=== PATIENT | male | born 1945 | race Caucasian/White ===

== ENCOUNTER 2021-11-18 10:43 | Inpatient (IN) | payer OTHER, MEDICARE, MEDICAID ==
[~2021-11-18 10:43] MED LIST: Iopamidol 370 76% 100 ML VIAL ONE
[2021-11-18 11:06] LABS: #Basophils 0.1 thou/uL (0.0-0.2); #Eosinphils 0.1 thou/uL (0.0-0.7); #Lymphocytes 3.1 thou/uL (1.20-3.40); #Monocytes 0.7 thou/uL (0.11-0.59); %Basophils 0.6 % (0.0-1.0); %Eosinophils 0.7 % (0.0-10.0); %Lymphocytes 22.3 % (21.0-51.0); %Neutrophils 71.3 % (42.0-75.0); Hemoglobin 16.4 g/dL (14.0-18.0); Mean Corpuscular HGB CONC 32.8 g/dL (32.0-36.0); Mean Corpuscular Volume 94.7 fL (78.0-98.0); Mean Platelet Volume 7.5 fL (7.4-10.4); Platelet Count 232 thou/uL (130-400); RBC Distribution Width 11.6 % (11.5-14.5); Red Blood Cell (RBC) Count 5.28 mill/uL (4.70-6.10); White Blood Cell (WBC) Count 14.1 thou/uL (4.8-10.8)
[2021-11-18 11:27] LABS: ALT (SGPT) 25 U/L (8-55); AST (SGOT) 23 U/L (5-34); Albumin 3.9 g/dL (3.4-4.8); Alkaline Phosphatase 86 U/L (40-110); Anion Gap 20 mmol/L (10-20); BUN (Urea Nitrogen) 26 mg/dL (8.4-25.7); Bilirubin, Total 0.8 mg/dL (0.2-1.2); CK (CPK) 137 U/L (30-200); Calc. Creatinine Clearance 0 mL/min (70-130); Calcium 8.5 mg/dL (7.8-10.44); Carbon Dioxide 19 mmol/L (23-31); Chloride 103 mmol/L (98-107); Estimated GFR 73; Glucose 173 mg/dL (83-110); INR-International Normal Ratio 1.1; Lipase 153 U/L (8-78); Potassium 3.5 mmol/L (3.5-5.1); Protein, Total 6.9 g/dL (5.8-8.1); Prothrombin Time 14.5 sec (12.0-14.7); Sodium 138 mmol/L (136-145)
[2021-11-18] MEDS ORDERED: Morphine 4 MG/ML VIAL ONE (11:35)
[2021-11-18] MEDS ORDERED: Midazolam HCl 2 mg/2 ml Vial ONE (11:35)
[2021-11-18 11:37] LABS: PTT 171.8 sec (22.9-36.1)
[2021-11-18] MEDS ORDERED: Acetaminophen/Codeine 30-300mg Tablet PO PRN (12:08)
[2021-11-18] MEDS ORDERED: traMADol HCl 50 MG TAB PO PRN (12:08)
[2021-11-18] MEDS ORDERED: Milk Of Magnesia 30 ML UDCUP PO PRN (12:08)
[2021-11-18] MEDS ORDERED: Clopidogrel Bisulfate 300 MG TAB ONE (12:09)
[2021-11-18] MEDS ORDERED: Sodium Chloride 0.9% 1,000 ML IV SCH (12:15)
[2021-11-18 12:20] LABS: SARS-CoV-2 NAA Rapid Test Not Detected (NotDetected)
[2021-11-18] MEDS ORDERED: Rocuronium Bromide 10 MG/ML (10ML VIAL) ONE (12:30)
[2021-11-18] MEDS ORDERED: Magnesium 5 GM/10 ML Abboject SYRINGE ONE (12:30)
[2021-11-18] MEDS ORDERED: Amiodarone 150 MG/3 ML VIAL ONE (12:30)
[2021-11-18] MEDS ORDERED: EPINEPHrine 1 MG/10 ML Abboject SYRINGE ONE ×2 (12:30→13:02)
[2021-11-18 12:57] LABS: Actual Bicarbonate (HCO3a) 14.9 mEq/L (22-28); Analyzer IN Cardio ER; Base Excess (BEa) -14.2 mEq/L (-2.0 to +3.0); CO2 Tension 46.1 mmHg (35.0-45.0); Calcium, Ionized (arterial) 1.15 mmol/L (1.12-1.30); Carboxyhemoglobin (COHb) 0.3 gm% (0.0-3.0); Potassium - ABG Lab 3.35 mmol/L (3.70-5.30)
[2021-11-18] MEDS ORDERED: Lidocaine 1% (PF) 30 ML VIAL ONE (12:59)
[2021-11-18 13:00] LABS: ALV-art Gradient 561.375 mmHg (0-20); Puncture Site RRA; pH, Arterial 7.13 (7.35-7.45)
[2021-11-18] MEDS ORDERED: Norepinephrine 4 MG/4 ML VIAL ONE ×2 (13:12→13:48)
[2021-11-18] MEDS ORDERED: Heparin 10,000 UNITS/ 10 ML VIAL ONE (13:17)
[2021-11-18] MEDS ORDERED: Aggrastat 12.5 MG/250 ML 250 ML ONE (13:23)
[2021-11-18] MEDS ORDERED: Phenylephrine 10 MG/ML VIAL ONE ×2 (13:31→13:46)
[2021-11-18] MEDS ORDERED: Adenosine 6 MG/2 ML VIAL ONE (13:33)
[2021-11-18] MEDS ORDERED: Sodium Bicarb 50 MEQ/50 ML VIAL ONE (15:20)
[2021-11-18] MEDS ORDERED: Sodium Bicarb 50 MEQ/50 ML VIAL IVP SCH (15:20)
[2021-11-18] MEDS: Sodium Bicarbonate 150 MEQ in Dextrose 5% in Water 1,000 ML IV SCH (16:19)
[2021-11-18] MEDS ORDERED: Morphine 4 MG/ML VIAL SLOW IVP PRN (17:00)
[2021-11-18] MEDS ORDERED: Propofol 1,000 MG/100 ML VIAL IV PRN (17:00)
[2021-11-18] MEDS ORDERED: Fentanyl CADD 100 ML IV SCH (17:00)
[2021-11-18] MEDS ORDERED: Lorazepam 2 MG/ML VIAL SLOW IVP PRN (17:00)
[2021-11-18] MEDS ORDERED: Fentanyl BOLUS 250 ML IVPB PRN (17:00)
[2021-11-18] MEDS ORDERED: Propofol BOLUS 1,000 MG/100 ML VIAL IV PRN (17:00)
[2021-11-18] MEDS ORDERED: DISCONTINUE PREVIOUS NARCOTIC PAIN MEDICATIONS AND BENZODIAZEPINES FS SCH (17:00)
[2021-11-18] MEDS: Vasopressin 20 UNIT, Admixture Fee 1 EACH in Sodium Chloride 0.9% 50 ML IV SCH ×2 (17:07→22:38)
[2021-11-18] MEDS: Phenylephrine 40 MG/NS 250 ML 40 MG in Premix Bag 1 BAG IVPB SCH ×2 (18:18→23:47)
[2021-11-18] MEDS: Norepinephrine 8 MG/0.9% NS 250 ML IVPB SCH ×2 (18:19→22:38)
[2021-11-18] MEDS ORDERED: Aggrastat 12.5 MG/250 ML 250 ML IVPB SCH (18:45)
[2021-11-18] MEDS ORDERED: Atorvastatin Calcium 40 MG TAB PO SCH (21:00)
[2021-11-18] MEDS ORDERED: Fentanyl CADD 100 ML ONE (22:58)
[2021-11-19] MEDS: Norepinephrine 8 MG/0.9% NS 250 ML IVPB SCH ×5 (02:18→16:26)
[2021-11-19] MEDS: Phenylephrine 40 MG/NS 250 ML 40 MG in Premix Bag 1 BAG IVPB SCH ×6 (02:18→19:22)
[2021-11-19] MEDS: Vasopressin 20 UNIT, Admixture Fee 1 EACH in Sodium Chloride 0.9% 50 ML IV SCH ×4 (03:17→19:23)
[2021-11-19] MEDS: Sodium Bicarbonate 150 MEQ in Dextrose 5% in Water 1,000 ML IV SCH ×2 (03:17→14:34)
[2021-11-19] MEDS ORDERED: Aspirin Chewable 81 MG TAB PO SCH (09:00)
[2021-11-19] MEDS ORDERED: Clopidogrel Bisulfate 75 MG TAB PO SCH (09:00)
[2021-11-19 09:45] LABS: #Lymphocytes 3.4 thou/uL (1.20-3.40); #Monocytes 1.3 thou/uL (0.11-0.59); #Neutrophils 12.5 thou/uL (1.40-6.50); %Basophils 0.1 % (0.0-1.0); %Eosinophils 0.3 % (0.0-10.0); %Lymphocytes 19.6 % (21.0-51.0); %Monocytes 7.7 % (0.0-10.0); %Neutrophils 72.4 % (42.0-75.0); Hemoglobin 9.7 g/dL (14.0-18.0); Mean Corpuscular HGB CONC 31.6 g/dL (32.0-36.0); Mean Corpuscular Volume 98.3 fL (78.0-98.0); Platelet Count 195 thou/uL (130-400); Red Blood Cell (RBC) Count 3.11 mill/uL (4.70-6.10); White Blood Cell (WBC) Count 17.3 thou/uL (4.8-10.8)
[2021-11-19 10:14] LABS: ALT (SGPT) 2164 U/L (8-55); AST (SGOT) 2476 U/L (5-34); Albumin 2.2 g/dL (3.4-4.8); Alkaline Phosphatase 60 U/L (40-110); Anion Gap 29 mmol/L (10-20); BUN (Urea Nitrogen) 27 mg/dL (8.4-25.7); Bilirubin, Total 0.6 mg/dL (0.2-1.2); Calc. Creatinine Clearance 25 mL/min (70-130); Calcium 6.5 mg/dL (7.8-10.44); Carbon Dioxide 15 mmol/L (23-31); Chloride 101 mmol/L (98-107); Estimated GFR 28; Globulin 1.7 g/dL (2.4-3.5); Glucose 194 mg/dL (83-110); Potassium 3.8 mmol/L (3.5-5.1); Protein, Total 3.9 g/dL (5.8-8.1); Sodium 141 mmol/L (136-145)
[2021-11-19 11:33] VITALS: BP 91/50
[2021-11-19 12:27] VITALS: BMI 28.8
[2021-11-19 17:04] VITALS: TEMP 98.1
[2021-11-19 18:32] LABS: Troponin I 255.606 ng/mL (< 0.028)
[2021-11-19] MEDS ORDERED: EPINEPHrine 1 MG/10 ML Abboject SYRINGE ONE (18:35)
[2021-11-19 19:22] LABS: Hemoglobin 8.2 g/dL (14.0-18.0); Mean Corpuscular HGB CONC 33.6 g/dL (32.0-36.0); Mean Corpuscular Hemoglobin 33.6 pg (27.0-31.0); Mean Corpuscular Volume 99.9 fL (78.0-98.0); Mean Platelet Volume 7.9 fL (7.4-10.4); Platelet Count 126 thou/uL (130-400); RBC Distribution Width 11.9 % (11.5-14.5); Red Blood Cell (RBC) Count 2.45 mill/uL (4.70-6.10)
[2021-11-19] MEDS ORDERED: Atropine Sulfate 1 mg/10 ml Syringe ONE (19:25)
[2021-11-19 19:35] LABS: Band 16 % (5-11); Lymphocytes 27 % (21-51); MDiff Complete? YES; Macrocytosis SLIGHT = 6-15 cells (100X) (0-5/hpf); Monocytes 1 % (0-10); Neutrophil 46 % (42-75); Platelet Morphology Comment Appears Decreased; Polychromasia SLIGHT = 2-3 cells (100X) (0-2/hpf); Reactive Lymphocytes 10 % (0-10)
[2021-11-19 19:42] LABS: Albumin 1.7 g/dL (3.4-4.8); Alkaline Phosphatase 96 U/L (40-110); BUN (Urea Nitrogen) 27 mg/dL (8.4-25.7); Bilirubin, Total 0.9 mg/dL (0.2-1.2); Calc. Creatinine Clearance 19 mL/min (70-130); Chloride 99 mmol/L (98-107); Estimated GFR 21; Globulin 1.4 g/dL (2.4-3.5); Glucose 134 mg/dL (83-110); Protein, Total 3.1 g/dL (5.8-8.1); Sodium 141 mmol/L (136-145)
[2021-11-19 19:47] LABS: AST (SGOT) Greater than 3500 U/L (5-34); Calcium 5.7 mg/dL (7.8-10.44); Carbon Dioxide Less than 8 mmol/L (23-31)
[2021-11-19 19:57] LABS: ALT (SGPT) 4139 U/L (8-55)
[2021-11-19] MEDS ORDERED: EPINEPHrine 4 MG in Dextrose 5% in Water 250 ML IV SCH (20:00)
== END 2021-11-19 20:20 | disposition expired | DRG 270 ==
LOC: ERS 10:43 → CCU 11:00
PROVIDERS: ADMIT Internal Medicine Cardiovascular Disease; ATTEND Internal Medicine Cardiovascular Disease
PROC: 027034Z Dilation of Coronary Artery, One Artery with Drug-eluting Intraluminal Device, Percutaneous Approach (ICD-10-PCS; principal; 2021-11-18)
PROC: 5A02210 Assistance with Cardiac Output using Balloon Pump, Continuous (ICD-10-PCS; 2021-11-18)
PROC: 027034Z Dilation of Coronary Artery, One Artery with Drug-eluting Intraluminal Device, Percutaneous Approach (ICD-10-PCS; 2021-11-18)
PROC: 5A1945Z Respiratory Ventilation, 24-96 Consecutive Hours (ICD-10-PCS; 2021-11-18)
PROC: 3E043XZ Introduction of Vasopressor into Central Vein, Percutaneous Approach (ICD-10-PCS; 2021-11-18)
PROC: 4A023N7 Measurement of Cardiac Sampling and Pressure, Left Heart, Percutaneous Approach (ICD-10-PCS; 2021-11-18)
PROC: B2111ZZ Fluoroscopy of Multiple Coronary Arteries using Low Osmolar Contrast (ICD-10-PCS; 2021-11-18)
PROC: B2151ZZ Fluoroscopy of Left Heart using Low Osmolar Contrast (ICD-10-PCS; 2021-11-18)
PROC: B240ZZ3 Ultrasonography of Single Coronary Artery, Intravascular (ICD-10-PCS; 2021-11-18)
PROC: 3E033PZ Introduction of Platelet Inhibitor into Peripheral Vein, Percutaneous Approach (ICD-10-PCS; 2021-11-18)
PROC: 5A12012 Performance of Cardiac Output, Single, Manual (ICD-10-PCS; 2021-11-18)
PROC: 5A2204Z Restoration of Cardiac Rhythm, Single (ICD-10-PCS; 2021-11-18)
PROC: B240ZZ3 Ultrasonography of Single Coronary Artery, Intravascular (ICD-10-PCS; 2021-11-18)
PROC: B2111ZZ Fluoroscopy of Multiple Coronary Arteries using Low Osmolar Contrast (ICD-10-PCS; 2021-11-18)
PROC: 0BH18EZ Insertion of Endotracheal Airway into Trachea, Via Natural or Artificial Opening Endoscopic (ICD-10-PCS; 2021-11-18)
PROC: 06HY33Z Insertion of Infusion Device into Lower Vein, Percutaneous Approach (ICD-10-PCS; 2021-11-18)
PROC: 0D9670Z Drainage of Stomach with Drainage Device, Via Natural or Artificial Opening (ICD-10-PCS; 2021-11-18)
DX: I21.19 ST elevation (STEMI) myocardial infarction involving other coronary artery of inferior wall (principal); J96.90 Respiratory failure, unspecified, unspecified whether with hypoxia or hypercapnia; I47.2 Ventricular tachycardia; T82.867A Thrombosis due to cardiac prosthetic devices, implants and grafts, initial encounter; M96.89 Other intraoperative and postprocedural complications and disorders of the musculoskeletal system; Z20.822 Contact with and (suspected) exposure to COVID-19; I46.2 Cardiac arrest due to underlying cardiac condition; I49.01 Ventricular fibrillation; Y83.1 Surgical operation with implant of artificial internal device as the cause of abnormal reaction of the patient, or of later complication, without mention of misadventure at the time of the procedure; R57.0 Cardiogenic shock; Y84.8 Other medical procedures as the cause of abnormal reaction of the patient, or of later complication, without mention of misadventure at the time of the procedure; Y92.234 Operating room of hospital as the place of occurrence of the external cause; E78.5 Hyperlipidemia, unspecified; I25.10 Atherosclerotic heart disease of native coronary artery without angina pectoris; I25.5 Ischemic cardiomyopathy; Z78.1 Physical restraint status; Z79.899 Other long term (current) drug therapy
CPT/HCPCS: 33967; 36556; 36600; 71045; 80053; 82550; 82553; 82805; 83690; 83880; 84484; 85025; 85347; 85610; 85730; 92928; 92941; 92973; 92978; 93005; 93010; 93306; 93454; 93458; 94002; 94003; 99152; 99153; C1725; C1751; C1753; C1757; C1769; C1874; C9600; C9606; J0153; J0171; J0282; J1644; J2001; J2250; J2270; J2370; J3010; J3246; J3475; J7070; Q9967; U0002